=== PATIENT | female | born 1960 | race Hispanic/Latino ===

== ENCOUNTER 2019-03-17 19:53 | Emergency (ER) | payer SELFPAY ==
[~2019-03-17] VITALS: Ht 172.7 cm; Wt 89.0 kg
[~2019-03-17 19:53] MED LIST: METFORMIN500 MG PO; NEXIUM40 MG PO; [UNRECOGNIZED DRUG - OTHER] PO; [UNRECOGNIZED DRUG - OTHER] PO
[2019-03-17] MEDS ORDERED: BACTRIM DS1 TAB PO (21:07)
[2019-03-17] MEDS ORDERED: LORTAB 1010 MG PO (21:07)
[2019-03-17] MEDS ORDERED: CEPHALEXIN500 M1 PO (21:07)
[2019-03-17 21:38] VITALS: BP 188/87
== END 2019-03-17 21:38 | disposition home or self-care (01) | DRG 603 ==
LOC: ED 19:53
PROC: 0H97XZZ Drainage of Abdomen Skin, External Approach (ICD-10-PCS; principal; 2019-03-17)
DX: L02.211 Cutaneous abscess of abdominal wall (principal); B95.62 Methicillin resistant Staphylococcus aureus infection as the cause of diseases classified elsewhere

== ENCOUNTER 2019-03-18 18:26 | Emergency (ER) | payer SELFPAY ==
[~2019-03-18] VITALS: Ht 172.7 cm; Wt 90.0 kg
[~2019-03-18 18:26] MED LIST changes: +BACTRIM DS1 TAB PO; +CEPHALEXIN500 M1 PO; +LORTAB 1010 MG PO
[2019-03-18 19:36] VITALS: BP 182/90
== END 2019-03-18 19:36 | disposition home or self-care (01) | DRG 951 ==
LOC: ED 18:26
DX: Z48.01 Encounter for change or removal of surgical wound dressing (principal)

== ENCOUNTER 2019-12-10 | Emergency (ER) | payer OTHER ==
[2019-12-10 09:18] LABS: HEMATOCRIT 46.1 % (37.0-47.0); HEMOGLOBIN 15.2 g/dl (12.0-16.0); MEAN CELL VOLUME 84.1 fL CALC (80.0-100.0); MEAN CORPUSCULAR HGB 27.7 pG CALC (26.0-32.0); NEUT# 11.21 thou/uL (2.00-7.15); RED BLOOD COUNT 5.48 mill/uL (4.20-5.60); RED CELL DISTRI WIDTH 13.4 % (11.5-15.5)
[2019-12-10 09:37] LABS: ALBUMIN 4.1 g/dL (3.2-5.0); ALKALINE PHOSPHATASE 184 u/l (38-126); ANION GAP 11 (6-22 (CALC)); BILIRUBIN, TOTAL 1.1 mg/dL (0.0-1.4); BUN 14 mg/dL (7-17); BUN/CREATININE RATIO 33 (12-20 (CALC)); CARBON DIOXIDE 27 mmol/l (22-30); CHLORIDE 103 mmol/l (95-108); CREATININE 0.4 mg/dL (0.5-1.0); GFR > 60 ML/MIN (>=60 (CALC)); GFR FOR AFR.AMER. > 60 ML/MIN (>=60 (CALC)); LIPASE 94 u/l (23-300); POTASSIUM 3.4 mmol/l (3.5-5.1); SGOT/AST 170 u/l (14-36); SODIUM 138 mmol/l (137-146); TOTAL PROTEIN 7.6 g/dL (6.3-8.2)
[2019-12-10 10:11] LABS: URINE BILIRUBIN - DIPSTICK NEGATIVE (NEGATIVE); URINE BLOOD DIPSTICK SMALL (NEGATIVE); URINE COLOR YELLOW; URINE GLUCOSE - DIPSTICK >=1000 mg/dL (NEGATIVE); URINE KETONE 15 mg/dL (NEGATIVE); URINE LEUK ESTERASE NEGATIVE (NEGATIVE); URINE NITRITE - DIPSTICK NEGATIVE (Negative); URINE PH 6.5 (4.5-8.0); URINE PROTEIN - DIPSTICK NEGATIVE (NEG-TRACE); URINE UROBILINOGEN - DIPSTICK 0.2 E.U./dL (0.2)
[2019-12-10 10:12] LABS: URINE EPITHELIAL CELLS FEW EPI/hpf (0-FEW)
== END 2019-12-10 10:50 | DRG 566 ==
PROVIDERS: Family Medicine
DX: S22.20XA Unspecified fracture of sternum, initial encounter for closed fracture (principal); E11.9 Type 2 diabetes mellitus without complications; I10 Essential (primary) hypertension; V44.5XXA Car driver injured in collision with heavy transport vehicle or bus in traffic accident, initial encounter
CPT/HCPCS: Q9967

== ENCOUNTER 2020-04-28 11:17 | Emergency (ER) | payer SELFPAY ==
[~2020-04-28] VITALS: Ht 152.4 cm; Wt 84.1 kg
[2020-04-28] MEDS ORDERED: LIPITOR20 M1 PO (11:30)
[2020-04-28] MEDS ORDERED: METFORMIN HCL1000 MG PO (11:31)
[2020-04-28] MEDS ORDERED: ALEVE220 M1 PO (11:31)
[2020-04-28] MEDS ORDERED: LISINOPRIL20 MG PO (11:31)
[2020-04-28] MEDS ORDERED: ASPIRIN81 MG PO (11:32)
[2020-04-28] MEDS ORDERED: JANUVIA100 MG PO (11:32)
[2020-04-28 13:08] VITALS: BP 180/79
== END 2020-04-28 13:09 | disposition home or self-care (01) | DRG 305 ==
LOC: ED 11:17
DX: I10 Essential (primary) hypertension (principal); E11.9 Type 2 diabetes mellitus without complications; Z79.84 Long term (current) use of oral hypoglycemic drugs

== ENCOUNTER 2021-09-12 10:16 | Emergency (ER) | payer SELFPAY ==
[~2021-09-12] VITALS: Ht 152.4 cm; Wt 100.0 kg
[~2021-09-12 10:16] MED LIST changes: +ALEVE220 M1 PO; +ASPIRIN81 MG PO; +JANUVIA100 MG PO; +LIPITOR20 M1 PO; +LISINOPRIL20 MG PO; +METFORMIN HCL1000 MG PO
[2021-09-12 11:49] LABS: HEMATOCRIT 42.4 % (37.0-47.0); IMMATURE GRANULOCYTES 0.1 % (0.0-5.0); MEAN CELL VOLUME 84.8 fL CALC (80.0-100.0); NEUT# 6.5 thou/uL (2.00-7.15); RED CELL DISTRI WIDTH 13.2 % (11.5-15.5)
[2021-09-12 12:11] LABS: ALBUMIN 3.5 g/dL (3.2-5.0); ALKALINE PHOSPHATASE 156 u/l (38-126); ANION GAP 11 (6-22 (CALC)); BUN 20 mg/dL (7-17); BUN/CREATININE RATIO 42 (12-20 (CALC)); CARBON DIOXIDE 26 mmol/l (22-30); CHLORIDE 103 mmol/l (95-108); CREATININE 0.5 mg/dL (0.5-1.0); GFR > 60 ML/MIN (>=60 (CALC)); GFR FOR AFR.AMER. > 60 ML/MIN (>=60 (CALC)); SGOT/AST 54 u/l (14-36); SODIUM 136 mmol/l (137-146); TOTAL PROTEIN 7.2 g/dL (6.3-8.2)
[2021-09-12] MEDS ORDERED: BACTRIM DS1 TAB PO (12:53)
[2021-09-12] MEDS ORDERED: CEPHALEXIN500 M1 PO (12:53)
[2021-09-12] MEDS ORDERED: HYDROCO/APAP1 TA9 PO (12:55)
[2021-09-12 13:15] VITALS: BP 141/77
== END 2021-09-12 13:30 | disposition home or self-care (01) | DRG 603 ==
LOC: ED 10:16
PROVIDERS: Family Medicine
DX: L03.311 Cellulitis of abdominal wall (principal); B96.20 Unspecified Escherichia coli [E. coli] as the cause of diseases classified elsewhere; E11.9 Type 2 diabetes mellitus without complications; I10 Essential (primary) hypertension; Z79.84 Long term (current) use of oral hypoglycemic drugs

== ENCOUNTER 2023-06-08 11:55 | Emergency (ER) | payer SELFPAY ==
[~2023-06-08] VITALS: Ht 152.4 cm; Wt 75.0 kg
[2023-06-08] VITALS (14 sets, daily range): BP systolic 149–236; BP diastolic 65–105
[~2023-06-08 11:55] MED LIST changes: +HYDROCO/APAP1 TA9 PO
[2023-06-08 14:07] LABS: BASO% 0.5 % (0-3); EOS% 0.2 % (0-8); HEMATOCRIT 47.4 % (37.0-47.0); IMMATURE GRANULOCYTES 0.2 % (0.0-5.0); LYMPH% 32.9 % (15-41); MEAN CELL VOLUME 86.2 fL CALC (80.0-100.0); MEAN CORPUSCULAR HGB 29.8 pG CALC (26.0-32.0); MEAN CORPUSCULAR HGB CONC 34.6 g/dL CAL (32.0-36.0); MONO% 6.6 % (2-13); NEUT# 4.82 thou/uL (2.00-7.15); NEUT% 59.6 % (42-76); RED BLOOD COUNT 5.5 mill/uL (4.20-5.60); RED CELL DISTRI WIDTH 12.6 % (11.5-15.5)
[2023-06-08 14:08] LABS: HEMOGLOBIN 16.4 g/dl (12.0-16.0)
[2023-06-08 14:21] LABS: ALBUMIN 3.9 g/dL (3.2-5.0); ALKALINE PHOSPHATASE 178 u/l (38-126); ANION GAP 10 (6-22 (CALC)); BILIRUBIN, TOTAL 1.2 mg/dL (0.02-1.3); BUN 11 mg/dL (8-23); BUN/CREATININE RATIO 24 (12-20 (CALC)); CARBON DIOXIDE 28 mmol/l (22-30); CHLORIDE 104 mmol/l (95-108); CREATININE 0.4 mg/dL (0.5-1.0); GFR FOR AFR.AMER. > 60 ML/MIN (>=60 (CALC)); GFR OTHER RACES > 60 ML/MIN (>=60 (CALC)); POTASSIUM 4.1 mmol/l (3.5-5.1); SGOT/AST 83 u/l (9-36); SODIUM 138 mmol/l (137-146); TOTAL PROTEIN 7.1 g/dL (6.3-8.2)
[2023-06-08] MEDS ORDERED: LISINOPRIL20 M1 PO (15:08)
[2023-06-08] MEDS ORDERED: NAPROXEN500 MG PO (15:08)
[2023-06-08] MEDS ORDERED: METHOCARBAMOL500 MG PO (15:08)
[2023-06-08] MEDS ORDERED: METFORMIN HCL500 M1 PO (15:08)
== END 2023-06-08 16:00 | disposition home or self-care (01) | DRG 552 ==
LOC: ED 11:55
PROVIDERS: Nurse Practitioner
DX: M47.816 Spondylosis without myelopathy or radiculopathy, lumbar region (principal); I10 Essential (primary) hypertension; E11.65 Type 2 diabetes mellitus with hyperglycemia; T46.5X6A Underdosing of other antihypertensive drugs, initial encounter; T38.3X6A Underdosing of insulin and oral hypoglycemic [antidiabetic] drugs, initial encounter; Z91.128 Patient's intentional underdosing of medication regimen for other reason; Z79.84 Long term (current) use of oral hypoglycemic drugs

== ENCOUNTER 2023-07-21 14:22 | Emergency (ER) | payer SELFPAY ==
[2023-07-21] VITALS (10 sets, daily range): BP systolic 176–225; BP diastolic 66–106
[~2023-07-21] VITALS: Ht 152.4 cm; Wt 72.5 kg
[~2023-07-21 14:22] MED LIST changes: +LISINOPRIL20 M1 PO; +METFORMIN HCL500 M1 PO; +METHOCARBAMOL500 MG PO; +NAPROXEN500 MG PO
[2023-07-21] MEDS ORDERED: LISINOPRIL20 M1 PO (15:34)
[2023-07-21] MEDS ORDERED: VIBRAMYCIN100 M2 PO (15:34)
== END 2023-07-21 16:35 | disposition home or self-care (01) | DRG 603 ==
LOC: ED 14:22
DX: L03.116 Cellulitis of left lower limb (principal); E11.9 Type 2 diabetes mellitus without complications; I10 Essential (primary) hypertension; Z79.84 Long term (current) use of oral hypoglycemic drugs